=== PATIENT | male | born 1970 | race Caucasian/White ===

== ENCOUNTER → 2024-01-26 13:59 | Outpatient (REF) | payer OTHER, SELFPAY | LOC: HWRAD 13:59 | PROVIDERS: ATTENDING PHYSICIAN Otolaryngology; FAMILY PHYSICIAN Family Medicine | DX: J32.9 Chronic sinusitis, unspecified (principal) | CPT/HCPCS: 70486 ==

== ENCOUNTER → 2024-06-04 13:59 | Outpatient (REF) | payer OTHER, SELFPAY | LOC: RCS 13:59 | PROVIDERS: ATTENDING PHYSICIAN Internal Medicine Cardiovascular Disease; FAMILY PHYSICIAN Nurse Practitioner | DX: I25.2 Old myocardial infarction (principal); I25.10 Atherosclerotic heart disease of native coronary artery without angina pectoris; R00.2 Palpitations; I49.3 Ventricular premature depolarization | CPT/HCPCS: 93306 ==

== ENCOUNTER → 2024-08-09 12:16 | Outpatient (REF) | payer OTHER, SELFPAY | LOC: MRI 12:16 | PROVIDERS: ATTENDING PHYSICIAN Family Medicine | DX: Z13.89 Encounter for screening for other disorder (principal); R51.9 Headache, unspecified; R27.0 Ataxia, unspecified | CPT/HCPCS: 70030; 70551 ==